=== PATIENT | male | born 1975 | race Caucasian/White ===

== ENCOUNTER 2020-10-11 10:44 | Emergency (ER) | payer OTHER ==
[~2020-10-11 10:44] MED LIST: LODINE CAP 300300 MG PO; NORFLEX 100 MG100 MG PO; ZOFRAN ODT 4 MG4 MG SL
[2020-10-11 11:13] LABS: HEMOGLOBIN 15.2 gm/dl (14.0-17.5); RED BLOOD COUNT 4.96 M/UL (4.20-5.50); WHITE BLOOD COUNT 8.2 K/UL (4.5-11.0)
[2020-10-11 11:33] LABS: BUN/CREATININE RATIO 29 (0-10)
== END 2020-10-11 14:21 | disposition home or self-care (01) ==
LOC: ER1 10:44
PROVIDERS: Student in an Organized Health Care Education/Training Program
DX: R07.89 Other chest pain (principal); K21.9 Gastro-esophageal reflux disease without esophagitis; F17.220 Nicotine dependence, chewing tobacco, uncomplicated
CPT/HCPCS: 71045; 80053; 82550; 82553; 83874; 84484; 85025; 93005; 96374; 99285; J1885